=== PATIENT | male | born 2005 | race Caucasian/White ===

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

== ENCOUNTER → 2023-01-02 | Outpatient (CLI) | payer MEDICAID, SELFPAY ==
[2023-01-02 10:34] LABS: Hematocrit 32.6 % (40-54); Hemoglobin 10.3 g/dL (13.0-16.5); Mean Corp Hgb Conc 31.6 g/dL (32-36); Mean Corpuscular Hgb 26.8 pg (27.0-32.0); Mean Corpuscular Volume 84.9 fL (80-94); Mean Platelet Vol. 9.5 fl (6.2-12.0); POSITIVE COUNT YES; POSITIVE DIFFERENTIAL YES; POSITIVE MORPHOLOGY YES; Platelet Count 91 K/mm3 (150-450); RBC Distribution Width CV 18.8 % (11.6-14.6); RBC Distribution Width SD 53.6 fl (35.1-43.9); Red Blood Count 3.84 M/mm3 (4.6-6.2); White Blood Count 24.3 K/mm3 (4.4-11.0)
[2023-01-02 10:38] LABS: Differential Indicated MANUAL DIFF
[2023-01-02 11:17] LABS: Basophil 2 % (0-1); Lymphocyte 2 % (19-41); Metamyelocyte 10 % (0-1); Monocyte 5 % (0-10); Myelocyte 10 % (0-0); Neutrophil-Band 12 % (0-5); Neutrophil-Segmented 57 % (47-70); Nucleated Red Bld Cells,Manual 1 % (0-5); Promyelocyte 2 % (0-0); Total Cells Counted 100 (MANUAL DIFF)
[2023-01-02 11:18] LABS: Anisocytosis 2+; Platelet Estimate MOD DEC (ADEQ); Red Cell Morphology N CHROM NORMAL (NORM C&C)
[2023-01-02 11:19] LABS: Absolute Lymphocyte Count 0.48 X10^3/uL (0.83-4.51); Absolute Neutrophil Count 16.7 X10^3/uL (2.0-7.7)
[2023-01-06 09:54] LABS: Pathologist Review Reviewed
== END | disposition home or self-care (01) ==
LOC: PAVLAB 10:06
PROVIDERS: PCP Internal Medicine
DX: C81.90 Hodgkin lymphoma, unspecified, unspecified site (principal); I26.99 Other pulmonary embolism without acute cor pulmonale
CPT/HCPCS: 36415; 85025

== ENCOUNTER → 2023-01-16 | Outpatient (CLI) | payer MEDICAID, SELFPAY ==
[2023-01-16 10:53] LABS: Absolute Neutrophil Count 0.3 X10^3/uL (2.0-7.7); Basophil# 0.04 X10^3/uL; Basophil% 4.6 % (0-1); Eosinophil# 0.03 X10^3/uL; Eosinophils% 3.4 % (0-5); Hematocrit 24.6 % (40-54); Hemoglobin 7.9 g/dL (13.0-16.5); Lymphocyte % 34.5 % (19-41); Mean Corp Hgb Conc 32.1 g/dL (32-36); Mean Corpuscular Hgb 27.6 pg (27.0-32.0); Mean Platelet Vol. 9.6 fl (6.2-12.0); Monocyte# 0.11 X10^3/uL; Monocyte% 12.6 % (0-10); NRBC Flagged by Analyzer 0 % (0-5); Neutrophil # 0.33 X10^3/uL (2.7-7.7); POSITIVE COUNT YES; POSITIVE DIFFERENTIAL YES; POSITIVE MORPHOLOGY YES; RBC Distribution Width CV 20.8 % (11.6-14.6); Red Blood Count 2.86 M/mm3 (4.6-6.2)
[2023-01-16 11:04] LABS: Differential Indicated SCAN CRITERIA MET; Platelet Count 14 K/mm3 (150-450); White Blood Count 0.9 K/mm3 (4.4-11.0)
[2023-01-16 11:28] LABS: Anisocytosis 1+; Platelet Estimate MKD DEC (ADEQ); Toxic Granulation 1+
[2023-01-17 10:28] LABS: Pathologist Review Reviewed
== END | disposition home or self-care (01) ==
PROVIDERS: PCP Internal Medicine
DX: C81.90 Hodgkin lymphoma, unspecified, unspecified site (principal); I26.99 Other pulmonary embolism without acute cor pulmonale
CPT/HCPCS: 36415; 85025

== ENCOUNTER 2023-01-17 12:36 | Outpatient (CLI) | payer MEDICAID, SELFPAY ==
[2023-01-17 13:01] VITALS: BP 118/70; PULSE 115; RESP 16; TEMP 36.6; O2SAT 100; BMI 19.2
[2023-01-17 13:33] VITALS: BP 117/69; PULSE 105; RESP 16; TEMP 36.7
[2023-01-17 13:49] VITALS: BP 111/67; PULSE 106; RESP 16; TEMP 36.7
== END 2023-01-17 12:37 | disposition home or self-care (01) ==
LOC: MEDOUTP 12:36
PROVIDERS: PCP Internal Medicine
DX: C81.90 Hodgkin lymphoma, unspecified, unspecified site (principal); D69.6 Thrombocytopenia, unspecified
CPT/HCPCS: 36430; 86850; 86900; 86901; 86920; 86922; 86965; J7040; P9035; A4216

== ENCOUNTER → 2023-01-20 | Outpatient (CLI) | payer MEDICAID, SELFPAY ==
[2023-01-20 10:51] LABS: Hematocrit 24.4 % (40-54); Hemoglobin 7.7 g/dL (13.0-16.5); Mean Corp Hgb Conc 31.6 g/dL (32-36); Mean Corpuscular Hgb 27.5 pg (27.0-32.0); Mean Corpuscular Volume 87.1 fL (80-94); Mean Platelet Vol. 10.2 fl (6.2-12.0); POSITIVE COUNT YES; Platelet Count 78 K/mm3 (150-450); RBC Distribution Width SD 63.7 fl (35.1-43.9); White Blood Count 9.7 K/mm3 (4.4-11.0)
[2023-01-20 10:52] LABS: Scan Indicated on CBC? Y/N NO
== END | disposition home or self-care (01) ==
PROVIDERS: PCP Internal Medicine
DX: C81.90 Hodgkin lymphoma, unspecified, unspecified site (principal)
CPT/HCPCS: 36415; 85027

== ENCOUNTER → 2023-02-06 | Outpatient (CLI) | payer MEDICAID, SELFPAY ==
[2023-02-06 10:35] LABS: Absolute Lymphocyte Count 0.21 X10^3/uL (0.83-4.51); Basophil# 0.03 X10^3/uL; Basophil% 9.1 % (0-1); Eosinophil# 0.03 X10^3/uL; Eosinophils% 9.1 % (0-5); Hematocrit 23.7 % (40-54); Hemoglobin 7.7 g/dL (13.0-16.5); Lymphocyte # 0.21 X10^3/ul (0.83-4.51); Lymphocyte % 63.6 % (19-41); Mean Corp Hgb Conc 32.5 g/dL (32-36); Mean Corpuscular Hgb 28.9 pg (27.0-32.0); Mean Corpuscular Volume 89.1 fL (80-94); Mean Platelet Vol. 10.8 fl (6.2-12.0); Monocyte# 0.02 X10^3/uL; Monocyte% 6.1 % (0-10); NRBC Flagged by Analyzer 0 % (0-5); Neutrophil # 0.04 X10^3/uL (2.7-7.7); Neutrophil % 12.1 % (47-70); POSITIVE COUNT YES; POSITIVE DIFFERENTIAL YES; POSITIVE MORPHOLOGY YES; RBC Distribution Width CV 19.9 % (11.6-14.6); RBC Distribution Width SD 64.3 fl (35.1-43.9); Red Blood Count 2.66 M/mm3 (4.6-6.2)
[2023-02-06 11:08] LABS: Platelet Count 10 K/mm3 (150-450); White Blood Count 0.3 K/mm3 (4.4-11.0)
[2023-02-06 11:09] LABS: Differential Indicated SCAN CRITERIA MET
[2023-02-06 12:26] LABS: Differential Comment SCANNED; Platelet Estimate MKD DEC (ADEQ)
[2023-02-07 13:25] LABS: Pathologist Review Reviewed
== END | disposition home or self-care (01) ==
PROVIDERS: PCP Internal Medicine
DX: C81.90 Hodgkin lymphoma, unspecified, unspecified site (principal)
CPT/HCPCS: 36415; 85025

== ENCOUNTER → 2023-02-14 | Outpatient (CLI) | payer MEDICAID, SELFPAY ==
[2023-02-14 10:09] LABS: Hematocrit 29.6 % (40-54); Hemoglobin 9.5 g/dL (13.0-16.5); Mean Corp Hgb Conc 32.1 g/dL (32-36); Mean Corpuscular Hgb 28.9 pg (27.0-32.0); Mean Platelet Vol. 9.2 fl (6.2-12.0); POSITIVE COUNT YES; POSITIVE MORPHOLOGY YES; Platelet Count 102 K/mm3 (150-450); RBC Distribution Width CV 17.4 % (11.6-14.6); RBC Distribution Width SD 54.9 fl (35.1-43.9); Red Blood Count 3.29 M/mm3 (4.6-6.2); White Blood Count 3.3 K/mm3 (4.4-11.0)
[2023-02-14 10:31] LABS: Differential Indicated MANUAL DIFF
[2023-02-14 11:34] LABS: Eosinophil 3 % (0-5); Lymphocyte 21 % (19-41); Monocyte 11 % (0-10); Myelocyte 7 % (0-0); Neutrophil-Band 3 % (0-5); Neutrophil-Segmented 55 % (47-70); Nucleated Red Bld Cells,Manual 1 % (0-5); Total Cells Counted 100 (MANUAL DIFF)
[2023-02-14 11:35] LABS: Absolute Neutrophil Count 1.9 X10^3/uL (2.0-7.7)
[2023-02-14 11:36] LABS: Absolute Lymphocyte Count 0.69 X10^3/uL (0.83-4.51)
[2023-02-17 12:55] LABS: Pathologist Review Reviewed
== END | disposition home or self-care (01) ==
PROVIDERS: PCP Internal Medicine
DX: C81.90 Hodgkin lymphoma, unspecified, unspecified site (principal); Z92.21 Personal history of antineoplastic chemotherapy
CPT/HCPCS: 36415; 85025

== ENCOUNTER → 2023-02-27 | Outpatient (CLI) | payer MEDICAID, SELFPAY ==
[2023-02-27 10:23] LABS: Hematocrit 25.6 % (40-54); Hemoglobin 8.6 g/dL (13.0-16.5); Mean Corp Hgb Conc 33.6 g/dL (32-36); Mean Corpuscular Hgb 29.9 pg (27.0-32.0); Mean Corpuscular Volume 88.9 fL (80-94); POSITIVE COUNT YES; POSITIVE DIFFERENTIAL YES; POSITIVE MORPHOLOGY YES; RBC Distribution Width CV 16.2 % (11.6-14.6); RBC Distribution Width SD 53.1 fl (35.1-43.9); Red Blood Count 2.88 M/mm3 (4.6-6.2)
[2023-02-27 10:35] LABS: Differential Indicated MANUAL DIFF; Platelet Count 3 K/mm3 (150-450); White Blood Count 0.4 K/mm3 (4.4-11.0)
[2023-02-27 11:19] LABS: Basophil 8 % (0-1); Lymphocyte 77 % (19-41); Monocyte 12 % (0-10); Myelocyte 4 % (0-0); Platelet Estimate MKD DEC (ADEQ); Total Cells Counted 26 (MANUAL DIFF)
[2023-02-28 10:18] LABS: Pathologist Review Reviewed
== END | disposition home or self-care (01) ==
LOC: PAVLAB 10:00
PROVIDERS: PCP Internal Medicine
DX: C81.90 Hodgkin lymphoma, unspecified, unspecified site (principal)
CPT/HCPCS: 36415; 85025

== ENCOUNTER 2023-02-28 12:09 | Outpatient (CLI) | payer MEDICAID, SELFPAY ==
[2023-02-28 12:24] VITALS: BP 113/65; PULSE 116; RESP 16; TEMP 36.6; O2SAT 100; BMI 20.3
[2023-02-28 12:56] VITALS: BP 112/58; PULSE 107; RESP 16; TEMP 36.4
[2023-02-28 13:26] VITALS: BP 98/51; PULSE 113; RESP 16; TEMP 36.5
[2023-02-28 14:15] VITALS: BP 102/61; PULSE 109; RESP 16; TEMP 36.6; O2SAT 100
== END 2023-02-28 12:10 | disposition home or self-care (01) ==
LOC: MEDOUTP 12:12
PROVIDERS: PCP Internal Medicine
DX: C81.90 Hodgkin lymphoma, unspecified, unspecified site (principal)
CPT/HCPCS: 36430; 86900; 86901; 86965; J7040; P9035; A4216

== ENCOUNTER → 2023-03-03 | Outpatient (CLI) | payer MEDICAID, SELFPAY ==
[2023-03-03 11:21] LABS: Hematocrit 22.9 % (40-54); Hemoglobin 7.6 g/dL (13.0-16.5); Mean Corp Hgb Conc 33.2 g/dL (32-36); Mean Corpuscular Hgb 29.6 pg (27.0-32.0); Mean Corpuscular Volume 89.1 fL (80-94); Mean Platelet Vol. 11.7 fl (6.2-12.0); POSITIVE COUNT YES; Platelet Count 19 K/mm3 (150-450); RBC Distribution Width CV 15.4 % (11.6-14.6); RBC Distribution Width SD 49.8 fl (35.1-43.9); Red Blood Count 2.57 M/mm3 (4.6-6.2); White Blood Count 1.6 K/mm3 (4.4-11.0)
[2023-03-03 11:23] LABS: Scan Indicated on CBC? Y/N YES- FLAGS NOTED
[2023-03-03 19:14] LABS: Xtra Tube EP Lab EXTRA TUBE
[2023-03-05 10:18] LABS: Pathologist Review Reviewed
== END | disposition home or self-care (01) ==
LOC: PAVLAB 10:59
PROVIDERS: PCP Internal Medicine
DX: C81.90 Hodgkin lymphoma, unspecified, unspecified site (principal)
CPT/HCPCS: 36415; 85027

== ENCOUNTER → 2023-03-06 | Outpatient (CLI) | payer MEDICAID, SELFPAY ==
[2023-03-06 10:17] LABS: Hematocrit 23.9 % (40-54); Hemoglobin 7.7 g/dL (13.0-16.5); Mean Corp Hgb Conc 32.2 g/dL (32-36); Mean Platelet Vol. 9.8 fl (6.2-12.0); POSITIVE COUNT YES; POSITIVE DIFFERENTIAL YES; POSITIVE MORPHOLOGY YES; Platelet Count 93 K/mm3 (150-450); RBC Distribution Width SD 53.2 fl (35.1-43.9); Red Blood Count 2.57 M/mm3 (4.6-6.2); White Blood Count 6.7 K/mm3 (4.4-11.0)
[2023-03-06 10:20] LABS: Differential Indicated MANUAL DIFF
[2023-03-06 10:39] LABS: Lymphocyte 24 % (19-41); Metamyelocyte 15 % (0-1); Monocyte 17 % (0-10); Myelocyte 12 % (0-0); Neutrophil-Band 3 % (0-5); Neutrophil-Segmented 28 % (47-70); Promyelocyte 1 % (0-0); Total Cells Counted 100 (MANUAL DIFF)
[2023-03-06 10:40] LABS: Absolute Neutrophil Count 3.9 X10^3/uL (2.0-7.7); Lymphocyte # 1.61 X10^3/ul (0.83-4.51); Neutrophil # 3.95 X10^3/uL (2.7-7.7)
[2023-03-06 10:41] LABS: Absolute Lymphocyte Count 1.61 X10^3/uL (0.83-4.51)
[2023-03-06 10:42] LABS: Platelet Estimate SLT DEC (ADEQ)
[2023-03-06 10:43] LABS: Polychromasia 1+
[2023-03-10 12:32] LABS: Pathologist Review Reviewed
== END | disposition home or self-care (01) ==
LOC: PAVLAB 09:50
PROVIDERS: PCP Internal Medicine
DX: C81.90 Hodgkin lymphoma, unspecified, unspecified site (principal)
CPT/HCPCS: 36415; 85025

== ENCOUNTER → 2023-03-20 | Outpatient (CLI) | payer MEDICAID, SELFPAY ==
[2023-03-20 10:37] LABS: Absolute Neutrophil Count 0.1 X10^3/uL (2.0-7.7); Basophil# 0.02 X10^3/uL; Basophil% 3.1 % (0-1); Hematocrit 28.2 % (40-54); Hemoglobin 9.5 g/dL (13.0-16.5); Lymphocyte % 61.5 % (19-41); Mean Corp Hgb Conc 33.7 g/dL (32-36); Mean Corpuscular Hgb 30.3 pg (27.0-32.0); Mean Corpuscular Volume 89.8 fL (80-94); Monocyte# 0.06 X10^3/uL; Monocyte% 9.2 % (0-10); NRBC Flagged by Analyzer 0 % (0-5); Neutrophil # 0.14 X10^3/uL (2.7-7.7); Neutrophil % 21.6 % (47-70); POSITIVE COUNT YES; POSITIVE DIFFERENTIAL YES; POSITIVE MORPHOLOGY YES; RBC Distribution Width CV 15.9 % (11.6-14.6); RBC Distribution Width SD 51.7 fl (35.1-43.9); Red Blood Count 3.14 M/mm3 (4.6-6.2)
[2023-03-20 10:44] LABS: Differential Indicated SCAN CRITERIA MET; Platelet Count 3 K/mm3 (150-450); White Blood Count 0.7 K/mm3 (4.4-11.0)
[2023-03-20 11:29] LABS: Platelet Estimate MKD DEC (ADEQ)
[2023-03-24 13:52] LABS: Pathologist Review Reviewed
== END | disposition home or self-care (01) ==
LOC: PAVLAB 10:14
PROVIDERS: PCP Internal Medicine
DX: C81.90 Hodgkin lymphoma, unspecified, unspecified site (principal)
CPT/HCPCS: 86900; 86901; 36415; 85025

== ENCOUNTER 2023-03-21 10:20 | Outpatient (CLI) | payer MEDICAID, SELFPAY ==
[2023-03-21 10:40] VITALS: BP 121/65; PULSE 93; RESP 16; TEMP 36.3; O2SAT 100; BMI 19.9
[2023-03-21 11:19] VITALS: BP 105/62; PULSE 87; RESP 16; TEMP 36.4
[2023-03-21 11:45] VITALS: BP 110/72; PULSE 91; RESP 16; TEMP 36.4; O2SAT 100
[2023-03-21 12:19] VITALS: BP 105/72; PULSE 92; RESP 16; TEMP 36.3; O2SAT 100
[2023-03-21 12:41] VITALS: BP 99/63; PULSE 90; RESP 16; TEMP 36.4; O2SAT 100
== END 2023-03-21 10:21 | disposition home or self-care (01) ==
LOC: MEDOUTP 10:20
PROVIDERS: PCP Internal Medicine
DX: C81.90 Hodgkin lymphoma, unspecified, unspecified site (principal)
CPT/HCPCS: 36430; 86900; 86901; 86965; J7040; P9035

== ENCOUNTER → 2023-03-24 | Outpatient (CLI) | payer MEDICAID, SELFPAY ==
[2023-03-24 10:07] LABS: Hemoglobin 7.9 g/dL (13.0-16.5); Mean Corp Hgb Conc 32.9 g/dL (32-36); Mean Corpuscular Hgb 29.7 pg (27.0-32.0); Mean Corpuscular Volume 90.2 fL (80-94); Mean Platelet Vol. 11.7 fl (6.2-12.0); POSITIVE COUNT YES; POSITIVE DIFFERENTIAL YES; POSITIVE MORPHOLOGY YES; Red Blood Count 2.66 M/mm3 (4.6-6.2)
[2023-03-24 10:44] LABS: Differential Indicated MANUAL DIFF; Platelet Count 16 K/mm3 (150-450); White Blood Count 1.5 K/mm3 (4.4-11.0)
[2023-03-24 11:31] LABS: Basophil 1 % (0-1); Blast 2 % (0-0); Lymphocyte 37 % (19-41); Metamyelocyte 1 % (0-1); Monocyte 23 % (0-10); Myelocyte 1 % (0-0); Neutrophil-Segmented 32 % (47-70); Platelet Estimate MKD DEC (ADEQ); Promyelocyte 3 % (0-0); Red Cell Morphology NORM C+C NORMAL (NORM C&C); Total Cells Counted 100 (MANUAL DIFF)
[2023-03-24 11:32] LABS: Absolute Neutrophil Count 0.5 X10^3/uL (2.0-7.7)
[2023-03-25 10:16] LABS: Pathologist Review Reviewed
== END | disposition home or self-care (01) ==
LOC: PAVLAB 09:48
PROVIDERS: PCP Internal Medicine
DX: C81.90 Hodgkin lymphoma, unspecified, unspecified site (principal)
CPT/HCPCS: 36415; 85025

== ENCOUNTER → 2023-03-27 | Outpatient (CLI) | payer MEDICAID, SELFPAY ==
[2023-03-27 09:26] LABS: Basophil# 0.03 X10^3/uL; Basophil% 0.8 % (0-1); Eosinophil# 0.01 X10^3/uL; Eosinophils% 0.3 % (0-5); Hematocrit 26.8 % (40-54); Hemoglobin 8.6 g/dL (13.0-16.5); Lymphocyte % 17.3 % (19-41); Mean Corp Hgb Conc 32.1 g/dL (32-36); Mean Corpuscular Hgb 30.4 pg (27.0-32.0); Mean Corpuscular Volume 94.7 fL (80-94); Mean Platelet Vol. 10.5 fl (6.2-12.0); Monocyte# 0.87 X10^3/uL; Monocyte% 22.2 % (0-10); NRBC Flagged by Analyzer 3.8 % (0-5); Neutrophil % 37.7 % (47-70); POSITIVE COUNT YES; POSITIVE MORPHOLOGY YES; Platelet Count 93 K/mm3 (150-450); RBC Distribution Width CV 16.6 % (11.6-14.6); RBC Distribution Width SD 53.2 fl (35.1-43.9); Red Blood Count 2.83 M/mm3 (4.6-6.2); White Blood Count 3.9 K/mm3 (4.4-11.0)
[2023-03-27 09:53] LABS: Lymphocyte 19 % (19-41); Metamyelocyte 13 % (0-1); Monocyte 1 % (0-10); Myelocyte 2 % (0-0); Neutrophil-Band 13 % (0-5); Neutrophil-Segmented 52 % (47-70); Nucleated Red Bld Cells,Manual 4 % (0-5); Total Cells Counted 100 (MANUAL DIFF)
[2023-03-27 09:54] LABS: Anisocytosis 2+; Hypochromasia 1+; Platelet Estimate SLT DEC (ADEQ); Polychromasia 2+
[2023-03-27 09:58] LABS: Absolute Lymphocyte Count 0.76 X10^3/uL (0.83-4.51); Absolute Neutrophil Count 2.6 X10^3/uL (2.0-7.7); Lymphocyte # 0.76 X10^3/ul (0.83-4.51)
[2023-03-28 09:57] LABS: Pathologist Review Reviewed
== END | disposition home or self-care (01) ==
LOC: PAVLAB 09:06
PROVIDERS: PCP Internal Medicine
DX: C81.90 Hodgkin lymphoma, unspecified, unspecified site (principal)
CPT/HCPCS: 36415; 85025

== ENCOUNTER 2023-06-09 09:02 | Outpatient (CLI) | payer MEDICAID, SELFPAY | END 2023-06-09 09:03 | disposition home or self-care (01) | PROVIDERS: PCP Internal Medicine | DX: C81.90 Hodgkin lymphoma, unspecified, unspecified site (principal) | CPT/HCPCS: 96523 ==